=== PATIENT | female | born 1935 | race Asian ===

== ENCOUNTER 2018-05-27 07:01 | Day surgery (SDC) | payer MEDICARE, OTHER ==
[2018-05-27 07:34] LABS: ADD MAN DIFF? NO
[2018-05-27 07:40] LABS: BASOPHILS % 0.8 % (0.0-2.0); EOSINOPHILS # 0.1 10^3/ul (0.0-0.5); EOSINOPHILS % 1.6 % (0.0-7.0); HEMATOCRIT 43.8 % (37.0-47.0); HEMOGLOBIN 14.5 g/dl (12.0-16.0); LYMPHOCYTES # 1.6 10^3/ul (0.8-2.9); LYMPHOCYTES % 32.8 % (15.0-51.0); MEAN CORPUSCULAR HEMOGLOBIN 31.1 pg (29.0-33.0); MEAN CORPUSCULAR HGB CONC 33.1 g/dl (32.0-37.0); MEAN PLATELET VOLUME 9.9 fl (7.4-10.4); MONOCYTE # 0.5 10^3/ul (0.3-0.9); MONOCYTES % 9.1 % (0.0-11.0); NEUTROPHIL # 2.8 10^3/ul (1.6-7.5); NEUTROPHILS % 55.5 % (39.0-77.0); PLATELET COUNT 186 10^3/UL (140-415); RED BLOOD COUNT 4.66 10^6/ul (4.20-5.40); RED CELL DISTRIBUTION WIDTH 12.2 % (11.5-14.5)
[2018-05-27 07:57] LABS: INR 0.86; PROTIME 11.8 Sec (11.9-14.9); PT RATIO 0.9
[2018-05-27 07:58] LABS: PARTIAL THROMBOPLASTIN TIME 32.6 Sec (23.0-35.0)
[2018-05-27 08:00] LABS: ALANINE AMINOTRANSFERASE 31 IU/L (13-69); ALBUMIN 4.3 g/dl (3.3-4.9); ALBUMIN/GLOBULIN RATIO 1.22; ALKALINE PHOSPHATASE 73 IU/L (42-121); ANION GAP 12 (5-13); ASPARTATE AMINO TRANSFERASE 38 IU/L (15-46); BILIRUBIN,INDIRECT 0.9 mg/dl (0-1.1); BILIRUBIN,TOTAL 0.9 mg/dl (0.2-1.3); BLOOD UREA NITROGEN 15 mg/dl (7-20); CALCIUM 9.4 mg/dl (8.4-10.2); CARBON DIOXIDE 24 mmol/L (21-31); CHLORIDE 106 mmol/L (97-110); CHOLESTEROL 226 mg/dl (100-200); CREATININE 0.59 mg/dl (0.44-1.00); GLUCOSE 110 mg/dl (70-220); HDL CHOLESTEROL 56 mg/dl (33-92); LDL CHOLESTEROL,CALCULATED 137 mg/dl; SODIUM 142 mmol/L (135-144); TOTAL PROTEIN 7.8 g/dl (6.1-8.1); TRIGLYCERIDES 164 mg/dl (0-149)
[2018-05-27] MEDS ORDERED: SOD CHLORIDE 0.45% 1,000 ML IV (08:00)
[2018-05-27] MEDS: DIAZEPAM 5 MG TAB PO (08:45)
[2018-05-27] MEDS: DIPHENHYDRAMINE 50 MG CAP PO (08:45)
[2018-05-27] MEDS: FAMOTIDINE 20 MG TAB PO (08:45)
[2018-05-27] MEDS ORDERED: VERAPAMIL 5 MG INJ (09:25)
[2018-05-27] MEDS ORDERED: MIDAZOLAM 1 MG/ML 2 ML INJ (09:25)
[2018-05-27] MEDS ORDERED: FENTAnyl 50 MCG/ML VIAL (09:25)
[2018-05-27] MEDS ORDERED: HEPARIN 1000 UNITS/ML 10 ML INJ (09:25)
[2018-05-27] MEDS ORDERED: NITROGLYCERIN (IC) 100 MCG/ML INJ (09:26)
[2018-05-27] MEDS ORDERED: BIVALIRUDIN 250 MG/50 ML NS BAG IVPB (10:20)
[2018-05-27] MEDS ORDERED: ADENOSINE 90 MG INJ (10:20)
[2018-05-27] MEDS ORDERED: LIDOCAINE 1% (MDV) 20 ML INJ (10:27)
[2018-05-27] MEDS ORDERED: IODIXANOL LOCM 100 ML BTL (10:27)
[2018-05-27] MEDS: SOD CHLORIDE 0.9% 1,000 ML IV (10:33)
[2018-05-27] MEDS ORDERED: morphine 2 MG INJ IV (11:00)
[2018-05-27] MEDS ORDERED: AL HYDROX/MG HYDROX/SIMETH 30 ML CUP PO (11:00)
[2018-05-27] MEDS ORDERED: ONDANSETRON 4 MG INJ IV (11:00)
[2018-05-27] MEDS: ACETAMINOPHEN 325 MG TAB PO (13:54)
== END 2018-05-27 14:43 | disposition home or self-care (01) ==
LOC: SDS 07:01
DX: I25.9 Chronic ischemic heart disease, unspecified (principal); I50.30 Unspecified diastolic (congestive) heart failure; I73.9 Peripheral vascular disease, unspecified; I25.10 Atherosclerotic heart disease of native coronary artery without angina pectoris; I10 Essential (primary) hypertension
CPT/HCPCS: 71045; 80053; 80061; 85025; 85610; 85730; 93005; 93458; 93571

== ENCOUNTER 2018-08-09 19:48 | Emergency (ER) | payer MEDICARE, OTHER ==
[2018-08-09] MEDS: PROPARACAINE 0.5% 15 ML OPH LEFT EYE (20:30)
[2018-08-09 20:55] LABS: ADD MAN DIFF? NO
[2018-08-09 20:59] LABS: BASOPHILS % 0.5 % (0.0-2.0); EOSINOPHILS # 0.1 10^3/ul (0.0-0.5); EOSINOPHILS % 1.4 % (0.0-7.0); HEMATOCRIT 40.3 % (37.0-47.0); HEMOGLOBIN 13.4 g/dl (12.0-16.0); LYMPHOCYTES # 2.1 10^3/ul (0.8-2.9); LYMPHOCYTES % 32.4 % (15.0-51.0); MEAN CORPUSCULAR HEMOGLOBIN 30.7 pg (29.0-33.0); MEAN CORPUSCULAR HGB CONC 33.3 g/dl (32.0-37.0); MEAN CORPUSCULAR VOLUME 92.2 fl (82.0-101.0); MEAN PLATELET VOLUME 9.7 fl (7.4-10.4); MONOCYTE # 0.8 10^3/ul (0.3-0.9); MONOCYTES % 11.5 % (0.0-11.0); NEUTROPHIL # 3.5 10^3/ul (1.6-7.5); PLATELET COUNT 193 10^3/UL (140-415); RED BLOOD COUNT 4.37 10^6/ul (4.20-5.40)
[2018-08-09 20:59] LABS: WHITE BLOOD COUNT 6.5 10^3/ul (4.8-10.8)
[2018-08-09 21:17] LABS: ANION GAP 8 (5-13); BLOOD UREA NITROGEN 17 mg/dl (7-20); CALCIUM 9.4 mg/dl (8.4-10.2); CARBON DIOXIDE 26 mmol/L (21-31); CHLORIDE 106 mmol/L (97-110); CREATININE 0.66 mg/dl (0.44-1.00); GLUCOSE 138 mg/dl (70-220); POTASSIUM 3.7 mmol/L (3.5-5.1); SODIUM 140 mmol/L (135-144)
[2018-08-09 21:28] LABS: TROPONIN-I < 0.012 ng/ml (0.000-0.120)
== END 2018-08-09 22:34 | disposition home or self-care (01) ==
LOC: E/R 19:48
DX: H53.132 Sudden visual loss, left eye (principal); R07.9 Chest pain, unspecified; H21.02 Hyphema, left eye; I20.0 Unstable angina; I10 Essential (primary) hypertension
CPT/HCPCS: 71045; 80048; 84484; 85025; 93005; 96372; 99285-25